=== PATIENT | female | born 1950 | race Caucasian/White ===

== ENCOUNTER 2017-09-09 15:18 | Inpatient (IN) | payer OTHER ==
[~2017-09-09] VITALS: Ht 162.6 cm; Wt 79.4 kg
[2017-09-09 16:07] VITALS: Ht 162.6 cm; Wt 79.4 kg
[2017-09-09 17:23] LABS: BASOPHIL % 0.1 % (0-2); RED CELL DISTRIBUTION WIDTH 13.5 % (11.5-14.5)
[2017-09-09 17:28] LABS: PLATELET COUNT 93 x10^3mcL (130-400)
[2017-09-09 17:31] LABS: CHLORIDE SERUM 101 mmol/L (98-107); CREATININE SERUM 0.9 mg/dL (0.6-1.0); GFR1 > 60 mL/min; GLUCOSE SERUM 134 mg/dL (74-106); POTASSIUM SERUM 3.4 mmol/L (3.5-5.1); SODIUM SERUM 138 mmol/L (136-145)
[2017-09-09 17:35] LABS: ALKALINE PHOSPHATASE 70 U/L (46-116); ALT/SGPT 61 U/L (14-59); AST/SGOT 63 U/L (15-37); BILIRUBIN TOTAL 0.5 mg/dL (0.20-1.00); TOTAL PROTEIN, SERUM 6.9 g/dL (6.4-8.2)
[2017-09-09 17:56] LABS: UA SPECIFIC GRAVITY <=1.005 (1.005-1.035); microscopic required? YES; urine erythrocyte 2+ (NEGATIVE)
[2017-09-09 20:18] LABS: CHOLESTEROL/HDL RATIO 5.3; MAGNESIUM 1.6 mg/dL (1.8-2.4); PHOSPHOROUS 1.6 mg/dL (2.5-4.9)
[2017-09-09 20:21] LABS: T3 TOTAL 0.95 ng/mL
[2017-09-09 20:28] LABS: FREE T4 1.4 ng/dL (0.76-1.46); FREE THYROXINE INDEX 3.6 ug/dL (1.4-4.5); T4(THYROXINE) 9.9 ug/dL (4.7-13.3)
[2017-09-09 20:38] VITALS: BP 113/65
[2017-09-10 06:06] VITALS: BP 107/59
[2017-09-10 08:00] VITALS: BP 145/77
[2017-09-10 08:02] LABS: BASOPHIL % 0.1 % (0-2); RED CELL DISTRIBUTION WIDTH 13.8 % (11.5-14.5)
[2017-09-10 08:04] LABS: PLATELET COUNT 72 x10^3mcL (130-400)
[2017-09-10 08:12] LABS: CALCIUM 9.6 mg/dL (8.5-10.1); CARBON DIOXIDE 23.8 mmol/L (21-32); CHLORIDE SERUM 106 mmol/L (98-107); CREATININE SERUM 0.7 mg/dL (0.6-1.0); GFR1 > 60 mL/min; GLUCOSE SERUM 118 mg/dL (74-106); POTASSIUM SERUM 3.3 mmol/L (3.5-5.1); SODIUM SERUM 140 mmol/L (136-145)
[2017-09-10 13:34] VITALS: BP 132/60
[2017-09-10 17:30] VITALS: BP 104/44
[2017-09-10 19:14] LABS: AMPHETAMINE QUAL UR NONE DETECTED (NEG <=1000)
[2017-09-10 21:30] VITALS: BP 105/54
[2017-09-11 06:00] VITALS: BP 123/53
[2017-09-11 06:53] LABS: CALCIUM 9.7 mg/dL (8.5-10.1); CARBON DIOXIDE 23.8 mmol/L (21-32); CHLORIDE SERUM 107 mmol/L (98-107); CREATININE SERUM 0.6 mg/dL (0.6-1.0); GFR1 > 60 mL/min; GLUCOSE SERUM 110 mg/dL (74-106); MAGNESIUM 1.9 mg/dL (1.8-2.4); PHOSPHOROUS 1.5 mg/dL (2.5-4.9); POTASSIUM SERUM 3.1 mmol/L (3.5-5.1); SODIUM SERUM 140 mmol/L (136-145)
[2017-09-11 07:03] LABS: BASOPHIL % 0.3 % (0-2); RED CELL DISTRIBUTION WIDTH 13.8 % (11.5-14.5)
[2017-09-11 07:04] LABS: PLATELET COUNT 66 x10^3mcL (130-400)
[2017-09-11 09:35] VITALS: BP 118/73
[2017-09-11] MEDS ORDERED: FLO4 PO (12:08)
[2017-09-11] MEDS ORDERED: LAC PO (12:09)
[2017-09-11] MEDS ORDERED: KEFLEX500 M1 PO (12:09)
[2017-09-11 13:38] VITALS: BP 119/58
[2017-09-11 16:54] VITALS: BP 119/58
[2017-09-11 17:35] VITALS: BP 107/52
== END 2017-09-11 19:39 | disposition home or self-care (01) | DRG 871 ==
LOC: ED 15:18 → DU 18:35
PROVIDERS: Emergency Medicine; Family Medicine
DX: A41.51 Sepsis due to Escherichia coli [E. coli] (principal); N17.0 Acute kidney failure with tubular necrosis; N13.6 Pyonephrosis; E44.0 Moderate protein-calorie malnutrition; R65.20 Severe sepsis without septic shock; R31.29 Other microscopic hematuria; B96.20 Unspecified Escherichia coli [E. coli] as the cause of diseases classified elsewhere; R73.03 Prediabetes; E83.42 Hypomagnesemia; E83.39 Other disorders of phosphorus metabolism; E87.6 Hypokalemia; E03.9 Hypothyroidism, unspecified; Z68.30 Body mass index [BMI] 30.0-30.9, adult; Z16.24 Resistance to multiple antibiotics
CPT/HCPCS: 83880; 84439; 87804; 90658; J0696; J3475; J3490; J7030; Q0092